=== PATIENT | female | born 1945 | race African-American/Black ===

== ENCOUNTER 2017-02-13 19:48 | Emergency (ER) | payer OTHER ==
[~2017-02-13] VITALS: Ht 172.7 cm; Wt 121.7 kg
[~2017-02-13 19:48] MED LIST: ASPIR-LOW81 MG PO; ATORVASTATIN CA20 MG PO; ATORVASTATIN CA40 MG PO; CALCIUM 500 MG1 EACH PO; CEFTIN500 MG PO; CELEBREX100 MG PO; CELEXA20 MG PO; CELEXA40 MG PO; CIPROFLOXACIN500 M1 PO; CITALOPRAM HBR40 MG PO; DILTIAZEM 24HR180 MG PO; DOCUSATE SODIU100 MG PO; ELIQUIS5 MG PO; FORTAMET1000 M1 PO; IRON325 M1 PO; KEFLEX500 MG PO; LEVEMIR FL100 UNITS/ SC; LIPITOR20 MG PO; LOPRESSOR100 M1 PO; LOPRESSOR50 MG PO; LYRICA75 MG PO; METFORMIN HCL500 MG PO; METOPROLOL TART25 MG PO; OMEPRAZOLE40 M1 PO; OXYCODONE-APAP1 EACH PO; PERCOCET 10/1 TABLET PO; SIMVASTATIN40 MG PO; SORE THROAT SP177 M1 MM; TRAMADOL HCL50 MG PO
[2017-02-13 20:12] LABS: POINT-OF-CARE METER ID UU13113747
[2017-02-13 20:12] LABS: BASOPHIL COUNT 0.1 K/uL (0-0.1); EOSINOPHIL (%) 1.9 % (0-5); EOSINOPHIL COUNT 0.1 K/uL (0-0.3); IMMATURE GRANULOCYTE (%) 0.3 % (0.0-0.7); INSTRUMENT ABS NEUTROPHIL CT 3.4 K/uL; LYMPHOCYTE COUNT 2.2 K/uL (1.0-2.8); MCH 27.5 PG (29.0-34.0); MCV 86.1 FL (83-99); MEAN PLAT.VOLUME 12.5 uM^3 (9.5-12.4); MONOCYTE (%) 6.2 % (3-12); MONOCYTE COUNT 0.4 K/uL (0-0.8); NEUTROPHIL (%) 54.6 % (45-76); NEUTROPHIL COUNT 3.4 K/uL (1.8-6.4); PLATELET COUNT 190 K/uL (156-360); RBC DIS.WIDTH-CV 14.4 % (11.8-14.6); RBC DIS.WIDTH-SD 45.1 % (39-53); RED BLOOD COUNT 4.76 M/uL (3.80-5.20); WHITE BLOOD COUNT 6.2 K/uL (4.1-10.2)
[2017-02-13 20:19] LABS: INTER. NORMALIZED RATIO 1.2; PROTHROMBIN TIME 13.8 SEC (10.2-12.9)
[2017-02-13 20:21] LABS: AMYLASE 66 IU/L (1-118); CHLORIDE 103 mEq/L (99-109); POTASSIUM 3.5 mEq/L (3.7-5.4); SODIUM 140 mEq/L (136-147)
[2017-02-13 20:23] LABS: GLUCOSE 352 mg/dL (70-99)
[2017-02-13 20:24] LABS: ANION GAP 16 MEQ/L (2-14)
[2017-02-13 20:26] LABS: SERUM ETHYL ALCOHOL < 10 mg/dL
[2017-02-13 20:27] LABS: GFR ESTIMATE (CALCULATED) 57 mL/min/
[2017-02-13 20:28] LABS: UREA NITROGEN (BUN) 12 mg/dL (9-23)
[2017-02-13 20:30] LABS: LIPASE 24 U/L (1.0-51.0)
[2017-02-13 20:33] LABS: TROP-I INTERPRETATION NEGATIVE; TROPONIN-I < 0.01 ng/mL (0.0-0.30)
[2017-02-13 21:12] LABS: PTT 18.1 SEC (25-37)
[2017-02-13 22:41] LABS: ADD MIUA? YES; BILIRUBIN NEGATIVE; BLOOD LARGE; COLOR YELLOW ((YELLOW)); GLUCOSE (STRIP) NEGATIVE; KETONES NEGATIVE; LEUKOCYTES MODERATE; NITRITE NEGATIVE; PROTEIN (STRIP) 30; SPECIFIC GRAVITY 1.012 (1.000-1.030)
[2017-02-13 22:53] LABS: BACTERIA 3+ /HPF; EPITHELIAL CELLS 2+ /HPF; MUCUS NONE SEEN /LPF; RED BLOOD CELLS TNTC /HPF (0-5); UCUL ADDED? YES; WHITE BLOOD CELLS TNTC /HPF (0-5)
[2017-02-14] MEDS ORDERED: LEVAQUIN750 MG PO (00:39)
[2017-02-14 00:45] VITALS: BP 113/69
== END 2017-02-14 01:16 | disposition home or self-care (01) ==
LOC: EME → EDBD 19:48 → EME 19:48
DX: N39.0 Urinary tract infection, site not specified (principal); R41.82 Altered mental status, unspecified; R53.1 Weakness; Z86.73 Personal history of transient ischemic attack (TIA), and cerebral infarction without residual deficits; E11.9 Type 2 diabetes mellitus without complications; Z87.440 Personal history of urinary (tract) infections; J45.909 Unspecified asthma, uncomplicated; F32.9 Major depressive disorder, single episode, unspecified
CPT/HCPCS: 70450; 71010; 80048; 81003; 82150; 82948; 83690; 84484; 85025; 85610; 85730; 86850; 86900; 86901; G0480; J0696; J7050

== ENCOUNTER 2017-10-12 22:07 | Inpatient (IN) | payer OTHER ==
[~2017-10-12] VITALS: Ht 170.2 cm; Wt 116.2 kg
[~2017-10-12 22:07] MED LIST changes: +LEVAQUIN750 MG PO
[2017-10-12 23:08] LABS: HEMATOCRIT 39.9 % (36.0-46.0); HEMOGLOBIN 12.9 G/DL (11.9-15.5); MCH 26.9 PG (29.0-34.0); MCHC 32.3 G/DL (30.0-36.0); MCV 83.3 FL (83-99); PLATELET COUNT 150 K/uL (156-360); RBC DIS.WIDTH-CV 15.9 % (11.8-14.6); RBC DIS.WIDTH-SD 48.3 % (39-53); RED BLOOD COUNT 4.79 M/uL (3.80-5.20); WHITE BLOOD COUNT 16.6 K/uL (4.1-10.2)
[2017-10-12 23:16] LABS: CHLORIDE 99 mEq/L (99-109); POTASSIUM 3.4 mEq/L (3.7-5.4); SODIUM 132 mEq/L (136-147)
[2017-10-12 23:18] LABS: GLUCOSE 283 mg/dL (70-99)
[2017-10-12 23:22] LABS: CREATININE 1.2 mg/dL (0.6-1.3); GFR ESTIMATE (CALCULATED) 57 mL/min/; UREA NITROGEN (BUN) 12 mg/dL (9-23)
[2017-10-12 23:25] LABS: TROP-I INTERPRETATION NEGATIVE; TROPONIN-I < 0.01 ng/mL (0.0-0.30)
[2017-10-13 01:27] LABS: APPEARANCE CLOUDY ((CLEAR)); BILIRUBIN NEGATIVE; BLOOD SMALL; COLOR AMBER ((YELLOW)); GLUCOSE (STRIP) NEGATIVE; KETONES NEGATIVE; LEUKOCYTES LARGE; NITRITE NEGATIVE; PROTEIN (STRIP) 30; SPECIFIC GRAVITY 1.016 (1.000-1.030)
[2017-10-13 01:45] LABS: BACTERIA 3+ /HPF; EPITHELIAL CELLS RARE /HPF; HYALINE CASTS 0-5 /LPF; MUCUS NONE SEEN /LPF; RED BLOOD CELLS 0-5 /HPF (0-5); UCUL ADDED? YES; WHITE BLOOD CELLS TNTC /HPF (0-5)
[2017-10-13 06:42] LABS: TROP-I INTERPRETATION NEGATIVE; TROPONIN-I < 0.01 ng/mL (0.0-0.30)
[2017-10-13 07:48] LABS: CHLORIDE 103 MEQ/L (99-109); DIRECT BILIRUBIN 0.3 mg/dL (0.0-0.3); POTASSIUM 3.3 MEQ/L (3.7-5.4); SODIUM 135 MEQ/L (136-147); TOTAL BILIRUBIN 1.1 MG/DL (0.0-1.0)
[2017-10-13 07:54] LABS: ALKALINE PHOSPHATASE 97 IU/L (3-129); ALT (GPT) 15 IU/L (3-49); AST (GOT) 20 IU/L (2-34); GFR ESTIMATE (CALCULATED) > 59 mL/min/; GLUCOSE 196 mg/dL (70-99); LIPASE 8 U/L (1.0-51.0); TOTAL PROTEIN 6.1 G/DL (6.4-8.3); UREA NITROGEN (BUN) 13 mg/dL (9-23)
[2017-10-13 15:56] VITALS: BP 144/87
[2017-10-13] MEDS ORDERED: CLONAZEPAM0.5 MG PO (16:39)
[2017-10-13] MEDS ORDERED: CITALOPRAM HBR40 MG PO (16:39)
[2017-10-13] MEDS ORDERED: ZOLOFT50 MG PO (16:40)
[2017-10-13] MEDS ORDERED: ATORVASTATIN CA40 MG PO (16:40)
[2017-10-13] MEDS ORDERED: LOPRESSOR50 MG PO (16:41)
[2017-10-13] MEDS ORDERED: PERCOCET 10/1 TABLET PO (16:42)
[2017-10-13] MEDS ORDERED: LYRICA75 MG PO (16:43)
[2017-10-13 19:40] VITALS: BP 144/84
[2017-10-13 23:05] VITALS: BP 135/84
[2017-10-14 03:38] VITALS: BP 140/81
[2017-10-14 05:27] LABS: HEMATOCRIT 31.7 % (36.0-46.0); MCH 26.3 PG (29.0-34.0); MCHC 32.5 G/DL (30.0-36.0); MCV 81.1 FL (83-99); PLATELET COUNT 147 K/uL (156-360); RBC DIS.WIDTH-CV 16.1 % (11.8-14.6); RBC DIS.WIDTH-SD 47.9 % (39-53); RED BLOOD COUNT 3.91 M/uL (3.80-5.20); WHITE BLOOD COUNT 12.7 K/uL (4.1-10.2)
[2017-10-14 05:39] LABS: HEMOGLOBIN 10.3 G/DL (11.9-15.5)
[2017-10-14 06:01] LABS: CHLORIDE 105 MEQ/L (99-109); CREATININE 0.9 MG/DL (0.6-1.3); GFR ESTIMATE (CALCULATED) > 59 mL/min/; SODIUM 135 MEQ/L (136-147); UREA NITROGEN (BUN) 11 mg/dL (9-23)
[2017-10-14 06:04] LABS: GLUCOSE 104 mg/dL (70-99)
[2017-10-14 08:34] VITALS: BP 112/67
[2017-10-14 12:42] VITALS: BP 114/62
[2017-10-14 16:44] VITALS: BP 118/72
[2017-10-14 19:45] VITALS: BP 112/78
[2017-10-15 00:02] VITALS: BP 124/73
[2017-10-15 03:37] VITALS: BP 136/71
[2017-10-15 12:02] VITALS: BP 115/67
[2017-10-15 16:29] VITALS: BP 120/77
[2017-10-15 19:00] VITALS: BP 139/82
[2017-10-15 23:14] VITALS: BP 115/65
[2017-10-16 04:14] VITALS: BP 127/69
[2017-10-16 05:42] LABS: HEMATOCRIT 29.1 % (36.0-46.0); HEMOGLOBIN 9.2 G/DL (11.9-15.5); MCH 26.4 PG (29.0-34.0); MCHC 31.6 G/DL (30.0-36.0); MCV 83.6 FL (83-99); PLATELET COUNT 154 K/uL (156-360); RBC DIS.WIDTH-CV 16.3 % (11.8-14.6); RBC DIS.WIDTH-SD 50.1 % (39-53); RED BLOOD COUNT 3.48 M/uL (3.80-5.20); WHITE BLOOD COUNT 4.9 K/uL (4.1-10.2)
[2017-10-16 06:06] LABS: CHLORIDE 113 MEQ/L (99-109); CREATININE 0.7 MG/DL (0.6-1.3); GFR ESTIMATE (CALCULATED) > 59 mL/min/; GLUCOSE 91 mg/dL (70-99); MAGNESIUM 1.5 mg/dl (1.3-2.7); POTASSIUM 3.5 MEQ/L (3.7-5.4); UREA NITROGEN (BUN) 8 mg/dL (9-23)
[2017-10-16 06:08] LABS: SODIUM 142 MEQ/L (136-147)
[2017-10-16 08:00] VITALS: BP 127/85
[2017-10-16 08:58] LABS: ALBUMIN 2.6 G/DL (3.2-4.8); ALKALINE PHOSPHATASE 78 IU/L (3-129); ALT (GPT) 9 IU/L (3-49); AST (GOT) 12 IU/L (2-34); DIRECT BILIRUBIN 0.2 mg/dL (0.0-0.3); LIPASE 13 U/L (1.0-51.0); TOTAL PROTEIN 5.6 G/DL (6.4-8.3)
[2017-10-16 08:59] LABS: TOTAL BILIRUBIN 0.6 MG/DL (0.0-1.0)
[2017-10-16] MEDS ORDERED: CEFTIN500 MG PO (11:56)
[2017-10-16 12:00] VITALS: BP 122/71
[2017-10-16] MEDS ORDERED: AUGMENTIN875 MG PO (12:08)
[2017-10-16 16:00] VITALS: BP 141/77
[2017-10-16] MEDS ORDERED: METRONIDAZOLE500 MG PO (16:17)
[2017-10-16] MEDS ORDERED: CIPROFLOXACIN500 M1 PO (16:17)
[2017-10-16 20:09] VITALS: BP 141/69
[2017-10-16 23:03] VITALS: BP 123/69
[2017-10-17 03:35] VITALS: BP 130/73
[2017-10-17 07:21] VITALS: BP 130/72
== END 2017-10-17 13:00 | disposition home health service (06) | DRG 871 ==
LOC: EME → EDBD 22:07 → EME 22:07 → 4EAST 10-13 04:40 → EDOF 10-13 04:40 → ENRESERV 10-13 04:45 → 4EAST 10-13 15:30 → ENPENDDIS 10-17 12:30 → 4EAST 10-17 13:00
PROVIDERS: Emergency Medicine; Hospitalist; Internal Medicine
PROC: 0F9430Z Drainage of Gallbladder with Drainage Device, Percutaneous Approach (ICD-10-PCS; principal; 2017-10-13)
DX: A41.9 Sepsis, unspecified organism (principal); G93.41 Metabolic encephalopathy; N39.0 Urinary tract infection, site not specified; I69.320 Aphasia following cerebral infarction; I69.351 Hemiplegia and hemiparesis following cerebral infarction affecting right dominant side; E66.01 Morbid (severe) obesity due to excess calories; E87.6 Hypokalemia; E87.1 Hypo-osmolality and hyponatremia; I48.2 Chronic atrial fibrillation; I47.1 Supraventricular tachycardia; I25.10 Atherosclerotic heart disease of native coronary artery without angina pectoris; E78.5 Hyperlipidemia, unspecified; I10 Essential (primary) hypertension; Z95.5 Presence of coronary angioplasty implant and graft; D69.6 Thrombocytopenia, unspecified; E11.42 Type 2 diabetes mellitus with diabetic polyneuropathy; J45.909 Unspecified asthma, uncomplicated; K80.00 Calculus of gallbladder with acute cholecystitis without obstruction; Z68.41 Body mass index [BMI] 40.0-44.9, adult
CPT/HCPCS: 49405; 70450; 70551; 71046; 74176; 76705; 80048; 80048 91; 80076; 81003; 82948; 83036; 83605; 83690; 83735; 84484; 85027; 85730; 87040; 87070; 87075; 87077; 87086; 87186; 87205; 92610 GN; 93005; 93306; 99281; 99285; C1729; C1769; J1335; J1644; J2543; J3010; J3370; J3480; J7030; J7050